=== PATIENT | female | born 1965 | race Two or more races ===

== ENCOUNTER 2018-04-12 12:18 | Outpatient (CLI) | payer OTHER | END 2018-04-12 12:22 | disposition home or self-care (01) | LOC: MAMO-SONO 12:18 | DX: N60.11 Diffuse cystic mastopathy of right breast (principal); Z12.31 Encounter for screening mammogram for malignant neoplasm of breast ==

== ENCOUNTER 2019-02-20 11:32 | Outpatient (CLI) | payer OTHER | END 2019-02-20 11:38 | disposition home or self-care (01) | LOC: NUCLEAR 11:32 | DX: M81.0 Age-related osteoporosis without current pathological fracture (principal) ==

== ENCOUNTER 2019-04-04 14:36 | Outpatient (CLI) | payer OTHER | END 2019-04-04 14:45 | disposition home or self-care (01) | LOC: RAD 14:36 | DX: J20.8 Acute bronchitis due to other specified organisms (principal) ==

== ENCOUNTER → 2020-07-02 | Outpatient (CLI) | payer OTHER | END | disposition home or self-care (01) | LOC: MAMO-SONO 13:45 | PROVIDERS: ATTEND Obstetrics & Gynecology | DX: N60.11 Diffuse cystic mastopathy of right breast (principal) ==

== ENCOUNTER 2021-10-07 10:53 | Outpatient (CLI) | payer OTHER | END 2021-10-07 11:03 | disposition home or self-care (01) | LOC: NUCLEAR 10:53 | PROVIDERS: ATTEND Internal Medicine | DX: M81.0 Age-related osteoporosis without current pathological fracture (principal) ==

== ENCOUNTER 2021-10-07 12:02 | Outpatient (CLI) | payer OTHER | END 2021-10-07 12:13 | disposition home or self-care (01) | LOC: MAMO-SONO 12:02 | PROVIDERS: ATTEND Obstetrics & Gynecology | DX: N60.11 Diffuse cystic mastopathy of right breast (principal); N60.12 Diffuse cystic mastopathy of left breast ==

== ENCOUNTER 2022-05-19 13:43 | Outpatient (CLI) | payer OTHER | END 2022-05-19 13:52 | disposition home or self-care (01) | LOC: RAD 13:43 | DX: M81.0 Age-related osteoporosis without current pathological fracture (principal); E55.9 Vitamin D deficiency, unspecified ==

== ENCOUNTER 2023-11-30 13:40 | Outpatient (CLI) | payer OTHER | END 2023-11-30 14:13 | disposition home or self-care (01) | LOC: MAMO-SONO 13:40 | PROVIDERS: ATTEND Obstetrics & Gynecology | DX: N60.11 Diffuse cystic mastopathy of right breast (principal) ==

== ENCOUNTER 2023-12-07 08:04 | Outpatient (CLI) | payer OTHER | END 2023-12-07 08:21 | disposition home or self-care (01) | LOC: SONOGRAMA 08:04 | PROVIDERS: ATTEND Internal Medicine Gastroenterology | DX: R16.1 Splenomegaly, not elsewhere classified (principal); E04.8 Other specified nontoxic goiter ==

== ENCOUNTER 2023-12-15 12:55 | Outpatient (CLI) | payer OTHER | END 2023-12-15 12:56 | disposition home or self-care (01) | LOC: NUCLEAR 12:55 | PROVIDERS: ATTEND Internal Medicine | DX: M81.0 Age-related osteoporosis without current pathological fracture (principal) ==

== ENCOUNTER 2024-12-19 14:04 | Outpatient (CLI) | payer OTHER | END 2024-12-19 14:10 | disposition home or self-care (01) | LOC: MAMO-SONO 14:04 | PROVIDERS: ATTEND Obstetrics & Gynecology | DX: N60.11 Diffuse cystic mastopathy of right breast (principal) ==